=== PATIENT | male | born 1950 | race Caucasian/White ===

== ENCOUNTER 2021-04-06 06:12 | Emergency (ER) | payer MEDICARE, MEDICAID ==
[2021-04-06] MEDS ORDERED: Diphtheria,Pertussis(Acell),Tetanus Vaccine 0.5 ML Syringe IM ONE (06:21)
--- NOTE | 2021-04-06 06:30 | EDM.PDOC ---
ED HPI GENERAL MEDICAL PROBLEM - General Stated Complaint: seizure Time Seen by Provider: 04/06/21 06:15 Source of Information: Reports: Patient, EMS, EMS Notes Reviewed History Limitations: Reports: Other (cognitive impairment, non verbal) - History of Present Illness INITIAL COMMENTS - FREE TEXT/NARRATIVE: Patient presents from the [facility] with fall and possible seizure. He does not have a history of seizure. He was being assisted to the bathroom by staff without a gait belt and suddenly had some shaking type activity, fell to the ground and was not responsive but breathing. He came to briefly and then had another episode after this. He is not on a blood thinner. Normally ambulatory but not very verbal. Not a good historian, mumbles some words. No history on wether or not he has been ill or not. Patient is agitated at arrival , pulling at his cords for vital signs ( pulse ox, leads) and refuses to put on oxygen. No iv access attempted due to agitation. - Related Data Allergies Allergy/AdvReac Type Severity Reaction Status Date / Time risperidone [From Risperdal] Allergy Cannot Verified 04/06/21 07:47 Remember Home Meds: Home Meds Acetaminophen 1,000 mg PO TID 04/06/21 [History] Bisacodyl [Gentle Laxative] 10 mg RC ASDIRECTED PRN 04/06/21 [History] Cyclobenzaprine [Flexeril] 10 mg PO TID PRN 04/06/21 [History] Escitalopram Oxalate [Lexapro] 10 mg PO DAILY 04/06/21 [History] Loperamide [Imodium] 2 mg PO ASDIRECTED PRN 04/06/21 [History] Magnesium Hydroxide [Milk of Magnesia] 30 ml PO DAILY PRN 04/06/21 [History] Multivitamin 1 each PO DAILY 04/06/21 [History] Omeprazole 20 mg PO DAILY 04/06/21 [History] QUEtiapine Fumarate [Seroquel] 50 mg PO DAILY 04/06/21 [History] QUEtiapine [SEROquel] 100 mg PO DAILY 04/06/21 [History] bisacodyL [Bisacodyl] 5 mg PO ASDIRECTED PRN 04/06/21 [History] polyethylene glycoL 3350 [MiraLAX] 17 gm PO BID 04/06/21 [History] Past Medical History Genitourinary History: Reports: BPH Neurological History: Reports: Alzheimers Disease Psychiatric History: Reports: Psychosis Social & Family History - Alcohol Use Alcohol Use in Last Twelve Months: No - Recreational Drug Use Recreational Drug Use: No Drug Use in Last 12 Months: No - Living Situation & Occupation Living situation: Reports: Extended Care Facility ED ROS GENERAL - Review of Systems Review Of Systems: Unable To Obtain Reason Not Obtained: pateint is non verbal, dementia patient ED EXAM, GENERAL - Physical Exam Exam: See Below Exam Limited By: Other (cognitive impairment) General Appearance: Alert, Anxious, Mild Distress Eye Exam: Bilateral Eye: PERRL Ears: Normal External Exam, Normal Canal, Hearing Grossly Normal, Normal TMs Nose: Other (superificial laceration to the bridge of the nose 2 cm) Throat/Mouth: Normal Inspection, Normal Lips, No Airway Compromise Head: Other (bruising to the forehead area. ) Neck: Limited Range of Motion (unsure if due to pain or cooperation) Respiratory/Chest: No Respiratory Distress, Lungs Clear Cardiovascular: Regular Rate, Rhythm, Systolic Murmur, Other (bruising right c hest wall) GI/Abdominal: Normal Bowel Sounds, Soft, Non-Tender Extremities: Other (abrasions to bilateral knees, superficial, normal rom. echymosis and abrasions to the hands and left elbow, no limitation of motion. grabs at left hip with internal and external rotation. ) Neurological: Alert, Other (non verbal , grabs at area being examined) Psychiatric: Other (agitated) ED GENERAL MEDICAL PROCEDURES - Laceration/Wound Repair Face Lac/wound length in cm: 2.0 (at bridge of nose. ) Appearance: Superficial Distal NVT: Neuro & Vascular Intact Skin Prep: Saline Exploration/Debridement/Repair: Wound Explored Closed with: Dermabond Sterile Dressing Applied: None Tetanus Status Addressed: Yes (given update) #1 Interpretation EKG Date: 04/06/21 Time: 06:26 Rhythm: NSR (baseline artifact due to patient state of mind, peaked T waves) Course - Vital Signs Last Recorded V/S: Last Vital Signs Temp 36.8 C 04/06/21 06:38 Pulse 89 04/06/21 09:55 Resp 12 04/06/21 09:25 BP 109/78 04/06/21 09:55 Pulse Ox 92 L 12/22/21 09:55 - Orders/Labs/Meds Orders: Active Orders 24 hr Category Date Time Status Vaccine to be Administered/Admin Charge [RC] ASDIRECTED Care 04/06/21 06:21 Active UA RFX THOM AND CULT IF INDIC [URIN] Stat Lab 04/06/21 06:20 Ordered Labs: Laboratory Tests 04/06/21 04/06/21 04/06/21 Range/Units 06:35 06:35 06:35 WBC 9.4 (4.0-10.0) x10^3/uL RBC 4.77 (4.5-6.0) x10^6/uL Hgb 15.2 (14.0-18.0) g/dL Hct 44.0 (40.0-52.0) % MCV 92.2 (78.0-93.0) fL MCH 31.9 (26.0-32.0) pg MCHC 34.5 (32.0-36.0) g/dL RDW Coeff of Norma 12.3 (10.0-15.0) % Plt Count 165 (130-400) x10^3/uL Immature Gran % (Auto) 1.50 H (0.00-0.43) % Neut % (Auto) 71.8 (50.0-80.0) % Lymph % (Auto) 20.4 L (25.0-50.0) % [place] % (Auto) 5.1 (2.0-11.0) % Eos % (Auto) 1.0 (0.0-4.0) % Baso % (Auto) 0.2 (0.2-1.2) % Neut # (Auto) 6.8 (1.8-7.7) x10^3/uL Lymph # (Auto) 1.9 (1.0-4.8) x10^3/uL [place] # (Auto) 0.5 (0.0-0.8) x10^3/uL Eos # (Auto) 0.1 (0.0-0.5) x10^3/uL Baso # (Auto) 0.0 (0.0-0.2) x10^3/uL Immature Gran # (Auto) 0.14 H (0.00-0.07) x10^3/uL PT 10.5 (9.9-12.5) SEC INR 0.9 L (2.0-3.5) Sodium 143 (136-145) mmol/L Potassium 4.3 (3.5-5.1) mmol/L Chloride 104 (98-107) mmol/L Carbon Dioxide 30 (21-32) mmol/L Anion Gap 13.3 (5-15) mmol/L BUN 18 (7-18) mg/dL Creatinine 0.9 (0.70-1.30) mg/dL Est Cr Clr Drug Dosing TNP Estimated GFR (MDRD) > 60 Glucose 110 H (70-99) mg/dL Calcium 9.2 (8.5-10.1) mg/dL Corrected Calcium 9.2 (8.5-10.1) mg/dL Total Bilirubin 0.5 (0.2-1.0) mg/dL AST 25 (15-37) U/L ALT 27 (16-63) U/L Alkaline Phosphatase 89 (46-116) U/L Ammonia (19-54) ug/dL Troponin I High Sens 6 (<=76) ng/L Total Protein 7.2 (6.4-8.2) g/dL Albumin 4.0 (3.4-5.0) g/dL Globulin 3.2 Albumin/Globulin Ratio 1.25 Influenza Type A RNA (NEGATIVE) RSV RNA (INAAT) (NEGATIVE) Influenza Type B RNA (NEGATIVE) SARS-CoV-2 RNA (SHEILA) (NEGATIVE) 04/06/21 04/06/21 Range/Units 06:35 06:45 WBC (4.0-10.0) x10^3/uL RBC (4.5-6.0) x10^6/uL Hgb (14.0-18.0) g/dL Hct (40.0-52.0) % MCV (78.0-93.0) fL MCH (26.0-32.0) pg MCHC (32.0-36.0) g/dL RDW Coeff of Norma (10.0-15.0) % Plt Count (130-400) x10^3/uL Immature Gran % (Auto) (0.00-0.43) % Neut % (Auto) (50.0-80.0) % Lymph % (Auto) (25.0-50.0) % [place] % (Auto) (2.0-11.0) % Eos % (Auto) (0.0-4.0) % Baso % (Auto) (0.2-1.2) % Neut # (Auto) (1.8-7.7) x10^3/uL Lymph # (Auto) (1.0-4.8) x10^3/uL [place] # (Auto) (0.0-0.8) x10^3/uL Eos # (Auto) (0.0-0.5) x10^3/uL Baso # (Auto) (0.0-0.2) x10^3/uL Immature Gran # (Auto) (0.00-0.07) x10^3/uL PT (9.9-12.5) SEC INR (2.0-3.5) Sodium (136-145) mmol/L Potassium (3.5-5.1) mmol/L Chloride (98-107) mmol/L Carbon Dioxide (21-32) mmol/L Anion Gap (5-15) mmol/L BUN (7-18) mg/dL Creatinine (0.70-1.30) mg/dL Est Cr Clr Drug Dosing Estimated GFR (MDRD) Glucose (70-99) mg/dL Calcium (8.5-10.1) mg/dL Corrected Calcium (8.5-10.1) mg/dL Total Bilirubin (0.2-1.0) mg/dL AST (15-37) U/L ALT (16-63) U/L Alkaline Phosphatase (46-116) U/L Ammonia 20 (19-54) ug/dL Troponin I High Sens (<=76) ng/L Total Protein (6.4-8.2) g/dL Albumin (3.4-5.0) g/dL Globulin Albumin/Globulin Ratio Influenza Type A RNA Negative (NEGATIVE) RSV RNA (INAAT) Negative (NEGATIVE) Influenza Type B RNA Negative (NEGATIVE) SARS-CoV-2 RNA (SHEILA) Negative (NEGATIVE) Meds: Medications Discontinued Medications Generic Name Dose Route Start Last Admin Trade Name Freq PRN Reason Stop Dose Admin Diphtheria/Tetanus/Acell Pertussis 0.5 ml 04/06/21 06:21 04/06/21 07:38 Diphtheria,Pertussis(Acell),Tetanus Vaccine 0.5 Ml Syringe IM 04/06/21 06:22 0.5 ml .ONCE ONE Administration Olanzapine 5 mg 04/06/21 07:12 04/06/21 07:37 Olanzapine 10 Mg Vial IM 04/06/21 07:13 5 mg ONETIME ONE Administration - Radiology Interpretation Free Text/Narrative:: ct of the head discussed with radiology, left frontal parietal 5 mm subdural hematoma with minimal mass effect without significant shift of midline. ct cervical spine non displaced C2 lateral mass. artifact from dental . discussed with radiologist. left hip and pelvis, no acute findings chest with low lung volumes, bibasilar opacities likely represent atelectasis but infiltrates could be obscured. overread of the ct scans by Dr. Sanches neurosurgery at [place]. Feels there is not a C2 fracture. no immobilization required. Also feels if there is any bleeding it is a 1-2 mm subdural and repeat CT scan is not recommended - Re-Assessments/Exams Free Text/Narrative Re-Assessment/Exam: 04/06/21 06:35 difficult to examine. Multiple areas of trauma to include nose, left elbow, hands, bilateral knees, chest/ Concern for him not leaving IV in place. Will check labs, chest x-jurgen, ct head and c spine and pelvis and hip xray patient is a code level 2. not on a blood thinner, O2 at at 85% but will not leave O2 on. 04/06/21 06:38 04/06/21 07:30 back from imaging. No abnormal labs. will give zyprexa 5 mg IM while awaiting for labs. Is agitated. May be able to get urine and place o2 on him. 04/06/21 08:07 Call from radiology, has a 5 mm subdural hematoma in the left frontal parietal area. no shift or mass effect and lateral mass effect of C2 non displaced fracture 04/06/21 08:22 will push [facility] and talk to neurosurgery about any needs for transfer. Patient will not tolerate the oxygen canula, will not tolerate a c collar. 04/06/21 09:[address] Sanches at [place]. recommendations no repeat scans, feels there is not a fracture, and possible 1-2 mm of blood in the same area. 04/06/21 10:[address] Love, patient's doctor. He is a palliative care patient. feels he would be at more risk in the hospital due to his Alzheimer and would need to have repeat sedation and this would be dangerous. She will see him tomorrow at 9 am. Departure - Departure Time of Disposition: 10:10 Disposition: DC[facility] Clinical Impression: Fall, Syncope, Subdural hematoma, Dementia with behavioral disturbance, Facial laceration, Abrasion - Discharge Information *PRESCRIPTION DRUG MONITORING PROGRAM REVIEWED*: Not Applicable *COPY OF PRESCRIPTION DRUG MONITORING REPORT IN PATIENT SAMEER: Not Applicable Referrals: Liseth Love MD [Primary Care Provider] - Additional Instructions: Dr. Love will see him tomorrow at 9 am ( 04/07/2021) he needs to return for gross neurological changes. He would benefit from a bed alarm and a gait belt while walking and assistance as needed There is a small amount of blood in the left frontal parietal area 1-2 mm. NO neck fracture, laceration is fixed with dermabond and will peel off. treat the abrasions with antibiotic ointment and bandages and watch for signs of infection Sepsis Event Note (ED) - Focused Exam Vital Signs: Vital Signs Temp Pulse Resp BP Pulse Ox 04/06/21 09:55 89 109/78 92 L 04/06/21 09:25 83 12 154/108 H 92 L 04/06/21 08:24 82 19 128/68 92 L 04/06/21 06:38 36.8 C 84 14 144/110 H 86 L - My Orders Last 24 Hours: My Active Orders 04/06/21 06:20 UA RFX THOM AND CULT IF INDIC [URIN] Stat 04/06/21 06:21 Vaccine to be Administered/Admin Charge [RC] ASDIRECTED - Assessment/Plan Last 24 Hours: My Active Orders 04/06/21 06:20 UA RFX THOM AND CULT IF INDIC [URIN] Stat 04/06/21 06:21 Vaccine to be Administered/Admin Charge [RC] ASDIRECTED
[2021-04-06 07:12] LABS: CHLORIDE,CL 104 mmol/L (98-107); SODIUM,NA 143 mmol/L (136-145)
[2021-04-06] MEDS ORDERED: OLANZapine 10 MG Vial IM ONE (07:12)
[2021-04-06 07:13] LABS: ANION GAP 13.3 mmol/L (5-15)
[2021-04-06 07:27] LABS: CORONAVIRUS COVID-19 NAA NEGATIVE (NEGATIVE); RESPIRATORY SYNCYTIAL VIR NAA NEGATIVE (NEGATIVE)
--- NOTE | 2021-04-06 08:13 | CR ---
[id number] RAD/RAD Pelvis 1V W 2V Left Hip EXAM: RAD Pelvis 1V W 2V Left Hip INDICATION: FALL,HEAD TRAUMA,SEIZURE. COMPARISON: None. DISCUSSION: Internal rotation of the right hip mildly limits assessment. Mild to moderate osteoarthritis of the hips. No acute fracture or dislocation is identified. IMPRESSION: 1. No acute findings. Terry Rich MD 04/06/21 0892 Thank you for allowing us to participate in the care of your patient.
--- NOTE | 2021-04-06 08:13 | CR ---
[id number] RAD/RAD Chest PA or AP 1V EXAM: FRONTAL CHEST INDICATION: FALL,HEAD TRAUMA,SEIZURE. COMPARISON: None. DISCUSSION: Tortuous thoracic aorta. Borderline heart size without evidence of edema. Low lung volumes with central vascular crowding and bibasilar atelectasis. These changes could obscure infiltrates and other pathology. IMPRESSION: 1. Low lung volumes. 2. Bibasilar opacities likely represent atelectasis but infiltrates could be obscured. Terry Rich MD 04/06/21 [id number] Thank you for allowing us to participate in the care of your patient.
--- NOTE | 2021-04-06 08:15 | CT ---
[id number] CT/CT Head WO IV EXAM: CT Head WO IV CLINICAL DATA: FALL, HEAD TRAUMA,SEIZURE. COMPARISON STUDY: None FINDINGS: Left frontoparietal extra-axial hematoma measuring up to 5 mm. There is minimal mass effect on the underlying brain. No significant shift of midline. No intraparenchymal hematoma. No subarachnoid hemorrhage. No intracranial mass or acute ischemia. Generalized parenchymal atrophy with scattered areas of nonspecific white matter disease, commonly seen as sequela of chronic microvascular ischemia. By frontal scalp hematomas without underlying calvarial fracture. Paranasal sinuses and mastoid air cells are clear. IMPRESSION: Left frontoparietal subdural hematoma measuring up to 5 mm. Minimal mass effect on the underlying brain without significant shift of midline. Findings discussed with ordering provider at time of dictation. David Meadows DO 04/06/21 0814 Thank you for allowing us to participate in the care of your patient.
--- NOTE | 2021-04-06 08:23 | CT ---
[id number] CT/CT Cervical Spine WO IV Exam: CT Cervical Spine WO IV CLINICAL DATA: TRAUMA. COMPARISON: None. FINDINGS: Evaluation is limited by motion and streak artifact. There appears to be a nondisplaced fracture through the lateral mass of C2 on the right. This is most pronounced on the coronal view. While there is streak artifact in the area from dental amalgam there appears to be a cortical defect as well. The C1-C2 articulation is unremarkable. No significant prevertebral soft tissue edema. IMPRESSION: APPARENT NONDISPLACED FRACTURES OF THE LATERAL MASS OF C2 ON THE RIGHT. FINDINGS DISCUSSED WITH ORDERING PROVIDER AT TIME OF DICTATION David Meadows DO 04/06/21 0822 Thank you for allowing us to participate in the care of your patient.
== END 2021-04-06 10:48 ==
LOC: VM.ED 06:12
DX: S06.5X0A Traumatic subdural hemorrhage without loss of consciousness, initial encounter (principal); S01.21XA Laceration without foreign body of nose, initial encounter; S80.212A Abrasion, left knee, initial encounter; S80.211A Abrasion, right knee, initial encounter; F03.90 Unspecified dementia, unspecified severity, without behavioral disturbance, psychotic disturbance, mood disturbance, and anxiety; R56.9 Unspecified convulsions; Z88.8 Allergy status to other drugs, medicaments and biological substances; Z79.899 Other long term (current) drug therapy; Z20.822 Contact with and (suspected) exposure to COVID-19; Z23 Encounter for immunization; W18.39XA Other fall on same level, initial encounter
CPT/HCPCS: 0241U; 12011; 36415; 70450; 71045; 72125; 73502; 80053; 82140; 84484; 85025; 85610; 90471; 90715; 93005; 96372; 99285; J3490